=== PATIENT | male | born 1990 | race African-American/Black ===

== ENCOUNTER 2017-02-11 18:04 | Emergency (ER) | payer SELFPAY ==
[~2017-02-11] VITALS: Ht 180.3 cm; Wt 72.0 kg
[2017-02-11] MEDS ORDERED: MOTRIN600 MG PO (21:17)
[2017-02-11] MEDS ORDERED: KEFLEX500 MG PO (21:17)
[2017-02-11 21:30] VITALS: BP 116/68
== END 2017-02-11 21:22 | disposition home or self-care (01) ==
LOC: EME 18:04 → RME 18:04
DX: S61.210A Laceration without foreign body of right index finger without damage to nail, initial encounter (principal); W26.0XXA Contact with knife, initial encounter; Z23 Encounter for immunization; F17.200 Nicotine dependence, unspecified, uncomplicated
CPT/HCPCS: 99281; 99284